=== PATIENT | male | born 1955 | race Caucasian/White ===

== ENCOUNTER 2020-07-06 00:01 | Outpatient (REF) | payer MEDICARE, MEDICAID, SELFPAY ==
[2020-07-07 12:50] LABS: ALT 47 U/L (16-63); AST 24 U/L (15-37); Albumin 3.6 g/dL (3.4-5.0); Alkaline Phosphatase 71 U/L (46-116); Anion Gap 11.8 mmol/L (3-11); BUN 14 mg/dL (7-18); Bilirubin, Total 0.3 mg/dL (0.2-1.0); CO2 26.2 mmol/L (21.0-32.0); CREATININE 1.13 mg/dL (0.70-1.30); Calcium 8.9 mg/dL (8.5-10.1); Chloride 102 mmol/L (98-107); Glucose 86 mg/dL (74-106); Potassium 3.9 mmol/L (3.5-5.1); Sodium 140 mmol/L (136-145); Total Protein 7.1 g/dL (6.4-8.2)
[2020-07-07 12:53] LABS: Calculated LDL 129 mg/dL (<100); Cholesterol 190 mg/dL (<200); HDL Cholesterol 32 mg/dL (40-60); Triglyceride 145 mg/dL (<150)
[2020-07-07 13:05] LABS: HCT 48.5 % (40.0-50.0); HGB 16.3 g/dL (13.5-17.5); MCHC 33.6 % (32.0-36.0); MCV 92.4 fL (80-95); MPV 10.6 fL (8.0-11.0); Neutrophils % 57.1; Platelet Count 215 10^3/uL (130-400); RBC 5.25 10^6/uL (4.36-5.78); RDW 11.1 % (11.8-14.1); WBC 8.16 10^3/uL (4.4-10.8)
[2020-07-07 13:06] LABS: Abs Immature Grans 0.03 10^3/uL (0.0-0.06); Absolute Basophil Count 0.06 10^3/uL (0.0-0.2); Absolute Eosinophil Count 0.19 10^3/uL (0.0-0.7); Absolute Lymphocyte Count 2.15 10^3/uL (1.2-3.4); Absolute Monocyte Count 1.08 10^3/uL (0.1-0.8); Absolute Neutrophil Count 4.65 10^3/uL (1.2-6.7); Basophils % 0.7; Eosinophils % 2.3; Immature Grans % 0.4; Lymphocytes % 26.3; Monocytes % 13.2; Nucleated RBC 0 %
== END 2020-07-06 00:21 ==
LOC: LBN 00:01
PROVIDERS: PCP Family Medicine; Visit Provider Physician Assistant
DX: I10 Essential (primary) hypertension (principal)
CPT/HCPCS: 80053; 80061; 85025

== ENCOUNTER 2020-11-24 13:30 | Outpatient (REF) | payer OTHER, MEDICAID, SELFPAY ==
[2020-11-24 22:07] LABS: Calculated LDL 164 mg/dL (<100); Cholesterol 233 mg/dL (<200); HDL Cholesterol 47 mg/dL (40-60); Triglyceride 111 mg/dL (<150)
[2020-11-25 18:09] LABS: PSA, Screening 0.3 ng/mL (0.0-4.5)
== END 2020-11-24 13:31 | disposition home or self-care (01) ==
LOC: LBN 13:30
PROVIDERS: PCP Family Medicine; Visit Provider Emergency Medicine
DX: I10 Essential (primary) hypertension (principal); E78.6 Lipoprotein deficiency; Z12.5 Encounter for screening for malignant neoplasm of prostate
CPT/HCPCS: 80061; 84153

== ENCOUNTER 2021-01-12 10:59 | Outpatient (REF) | payer OTHER, MEDICAID, SELFPAY ==
[2021-01-12 14:45] LABS: Anion Gap 10.4 mmol/L (3-11); BUN 16 mg/dL (7-18); CO2 26.6 mmol/L (21.0-32.0); Calcium 9.2 mg/dL (8.5-10.1); Chloride 102 mmol/L (98-107); Glucose 110 mg/dL (74-106); Potassium 4.1 mmol/L (3.5-5.1); Sodium 139 mmol/L (136-145)
== END 2021-01-12 11:00 | disposition home or self-care (01) ==
LOC: LBN 10:59
PROVIDERS: PCP Emergency Medicine; Visit Provider Emergency Medicine
DX: I10 Essential (primary) hypertension (principal)
CPT/HCPCS: 80048

== ENCOUNTER → 2021-07-22 11:03 | Outpatient (BNVA) | payer MEDICARE, MEDICAID, SELFPAY | PROVIDERS: PCP Emergency Medicine; Referring Provider Emergency Medicine; Visit Provider Physical Therapy Assistant | DX: Z12.11 Encounter for screening for malignant neoplasm of colon (principal); I10 Essential (primary) hypertension ==

== ENCOUNTER 2021-07-28 01:16 | Outpatient (CLI) | payer MEDICARE, SELFPAY ==
[2021-07-28 11:22] LABS: Source Nasal/Nares
[2021-07-28 14:02] LABS: COVID-19 PCR Negative (Negative)
== END 2021-07-28 01:17 | disposition home or self-care (01) ==
LOC: LBO 01:17
PROVIDERS: PCP Emergency Medicine; Visit Provider Surgery
DX: Z20.822 Contact with and (suspected) exposure to COVID-19 (principal)
CPT/HCPCS: 87635

== ENCOUNTER 2021-07-30 11:02 | Day surgery (SDC) | payer MEDICARE, SELFPAY ==
--- NOTE | 2021-07-29 22:43 | COLE_ITS ---
Colonoscopy Report Date of procedure: 07/30/21 Pre-op diagnosis general: CRC screen Surgeon: Deepti Rodriguez Anesthesia Type: General:No Airway Pathology: other Complications: None Disposition: same day Prep: Miralax/Dulcolax Retraction Time: 9 Procedure Description: After informed consent was obtained the patient was taken to the procedure room and placed in a left decubitous position. Monitors were applied and a time out was done. The patients name, date of , procedure, allergies to medications and metal in their body was reviewed. The patient was then sedated. Once sedated and comfortable a rectal exam was done. External exam was normal. Internal exam revealed a normal sphincter tone and no palpable mas ses. The scope was then introduced and retrofelexed. No internal hemorrhoids were identified. The scope was then advanced to the cecum w/out difficulty. The TI and appendiceal orifice were identified. The prep was good. The scope was then slowly retracted over 9 minutes back into the rectum. Patient had a small 5 mm polyp at 90 cm. This is removed with cold forcep. All specimen is retrieved and no bleeding is noted. He is moderate diverticula confined to the sigmoid colon. There is no signs of active bleeding or.. The scope was removed and the patient was woken up and taken back to Same day surgery in stable condition. The patient tolerated the procedure well and there were no immediate complications. Follow up: The patient should follow up in 5-7 years unless they develop changes in bowel habits or other new gastrointestinal complaints.
--- NOTE | 2021-07-29 22:44 | PDOC.DSDIS_ITS ---
Discharge Plan Disposition Patient Disposition: HOME Condition: Good Discharge Details Reason For Visit: colon scope Attending Provider: Deepti Rodriguez Primary Care Provider: John Willis Home Meds and New Rx's Prescriptions: Continued lisinopril 2.5 mg tablet 2.5 mg PO DAILY Qty: 90 RF: 3 amlodipine 5 mg tablet 5 mg PO DAILY Qty: 90 RF: 11 aspirin 81 mg tablet,chewable 81 mg PO DAILY RF: 0 cholecalciferol (vitamin D3) 10 mcg (400 unit) capsule 10 mcg PO DAILY RF: 0 naproxen sodium [Aleve] 220 mg tablet 220 mg PO BID PRNRF: 0 hydrochlorothiazide 25 mg tablet 25 mg PO QAM Qty: 90 RF: 3 Discontinued bisacodyl [Dulcolax (bisacodyl)] 5 mg tablet,delayed release (DR/EC) 5 mg PO ONCE Qty: 4 RF: 0 polyethylene glycol 3350 17 gram/dose powder 17 g PO ONCE Qty: 238 RF: 0 Discharge Instructions Additional Instructions: DSU Colonoscopy Post- Op Instructions Instructions for Everyone who is given Anesthesia: For your safety, please do the following for the next twenty-four (24) hours: *Do Not operate a motor vehicle (car, truck, motorcycle, etc.) *Do Not drink alcoholic beverages or use any recreational drugs for the first 24 hours or while taking pain medications. The medications in your body may have a reaction that can be dangerous. *Do Not make any important decisions or sign any important papers. Findings:diverticula x1 small polyp Follow up: My office will send a letter in 2 to 3 weeks time detailing as to what type of polyp it was and when we want you to repeat your colonoscopy. 1. No lifting over 20 pounds or strenuous activity for the first 24 hours after your procedure. After 24 hours there are no restrictions on your activity but you may feel fatigued for a few days. 2. After you arrive home you may have a light meal and return to your normal diet as you can tolerate it without feeling sick to your stomach. 3. You may have a bloated, gaseous feeling in your belly (abdomen) after a colonoscopy. Passing gas and belching will help. Walking or lying down on your left side with your knees flexed may relieve the discomfort. Call the office at [phone] (Office) or [phone] (Hospital) right away if you notice any of the following: a.Vomiting of blood or ?coffee ground stools?. b.Rectal bleeding 1Tbsp, blood clots or continuous bleeding. c.Severe belly (abdominal) pain. d.A hard distended belly (abdomen) and an inability to pass gas. 4. Please don?t expect to have a normal BM (bowel movement) for 2-3 days after your procedure. 5. If there are questions regarding the findings of your procedure, please contact your doctor 6. If you are unable to contact your doctor with a problem, contact the hospital at [phone]. 7. Continue all your regular medications unless directed otherwise. I understand the above instructions and have no questions. Signature of Patient or Adult Escort Name of Responsible Adult Escort Signature of Nurse Date/Time Activity:: see above Diet:: see above Discharge Orders Discharge Orders: Discharge Order (Routine); Ordered 07/29/21 Ordered By: Deepti Rodriguez DS: Diagnosis Discharge Diagnosis (1) Colon cancer screening: Status: Acute
--- NOTE | 2021-07-30 11:20 | W.ANESPRE ---
General Info Date of Service Date Performed: 07/30/21 Height: 6 ft Weight: 97.976 kg Body Mass Index (BMI): 29.2 Surgical Procedure: Operation Date: 07/30/21 11:35 Proposed Procedures Side Surgeon naz Rodriguez, DO Meds Allergies and Home Medications Allergies Allergy/AdvReac Type Severity Reaction Status Date / Time No Known Allergies Allergy Verified 07/30/21 11:19 Home Medication Medication Instructions Recorded aspirin 81 mg chewable tablet 81 mg PO DAILY 08/03/20 cholecalciferol (vitamin D3) 10 10 mcg PO DAILY 08/03/20 mcg (400 unit) capsule naproxen sodium 220 mg tablet 220 mg PO BID PRN 08/03/20 hydrochlorothiazide 25 mg tablet 25 mg PO QAM #90 tab 11/24/20 amlodipine 5 mg tablet 5 mg PO DAILY #90 tab 01/12/21 lisinopril 2.5 mg tablet 2.5 mg PO DAILY #90 tab 01/12/21 Current Visit Medications: Current Medications Generic Name Dose Route Start Last Admin Trade Name Freq PRN Reason Stop Dose Admin Hyoscyamine Sulfate 0.125 mg 07/29/21 22:41 Hyoscyamine 0.125 Mg Sl/Oral/Chew SL DIRECTED PRN Ringer's Solution 1,000 mls @ 80 mls/hr 07/30/21 06:00 IV 08/28/21 23:59 [facility] IV Miscellaneous Supplies 1 each 07/30/21 06:00 Iv Access IV 08/28/21 23:59 DIRECTED TIFFANY Ondansetron HCl 4 mg 07/29/21 22:41 Ondansetron 4 Mg/2 Ml Vial IVP Q4H PRN PRN Nausea / Vomiting Sodium Chloride 0 ml 07/30/21 06:00 Normal Saline Flush 10 Ml Syr IV 08/28/21 23:59 PRN PRN Sodium Chloride 0 ml 07/30/21 06:00 Normal Saline 10 Ml Vial IJ 08/28/21 23:59 DIRECTED PRN Sterile Water 0 ml 07/30/21 06:00 Water,Injection,Sterile 10 Ml Vial IJ 08/28/21 23:59 DIRECTED PRN PFSH Active Problems Active Problems: Problem Status Onset Code Colon cancer screening Z12.11 Generalized osteoarthritis of multiple sites ~01/29/18 M15.9 Generalized osteoarthrosis of multiple sites ~12/18/16 M15.9 Low HDL (under 40) E78.6 Hypertension I10 Medical History Medical History Osteoarthritis of spine (~09/13/12) Surgical History Surgical History S/P cholecystectomy (~10/2010) Tobacco Smoking/Tobacco Use Status: Former Tobacco Use Tobacco: How many years used: 8 Smokeless tobacco user: chewing tobacco Passive smoking exposure: No Quit Status: quit date established Second hand exposure: No Alcohol Alcohol Intake: current Alcohol intake frequency: a few times a week Alcohol type: beer Substance Use Substance use: Never Substance use type: does not use Vital Signs and Lab Results Vital Signs Most Recent Vital Signs in EMR: Temp Pulse Resp BP Pulse Ox 36.6 C 76 16 146/95 H 96 07/30/21 11:23 07/30/21 11:23 07/30/21 11:23 07/30/21 11:23 07/30/21 11:23 Lab Results Blood Type / Crossmatch: No Data to Display Complete Blood Count: No Data to Display Complete Metabolic Panel: No Data to Display Liver Function Panel: No Data to Display Coagulation Panel: No Data to Display Cardiac Panel: No Data to Display Arterial Blood Gas: No Data to Display Venous Blood Gas: No Data to Display Pancreas Panel: No Data to Display Thyroid Panel: No Data to Display Infectious Disease: Coronavirus (COVID-19)(PCR) Negative (Negative) 07/28/21 09:08 07/28/21 Coronavirus 2019 Source Nasal/Nares 07/28/21 09:08 07/28/21 Blood Cultures: No Data to Display Toxicology Panel: No Data to Display Anesthesia Assessment and Plan Anesthesia History Personal History: No History of Anesthesia Complications Family History: No Family History of Anesthesia Complications Exercise Tolerance Exercise Tolerance: Metabolic Equivalents>4 Pertinent Negatives Pertinent Negatives: No Symptoms of GERD Cardiac & Pulmonary Exam Cardiac Exam: Normal S1/S2 Heart Sounds Pulmonary Exam: Clear Bilateral Breath Sounds Implantable Cardiac Device Does patient have a Pacemaker or an ICD?: No Airway Exam Known Difficult Airway: No Mallampati Class: 2 Mouth Opening: Normal (> 3cm) Thyromental Distance: Greater than 3 cm Neck Range of Motion: Full ROM Neck Circumference: Normal Teeth Condition: Normal Dentition ASA Classification ASA Score: ASA 2 Emergency Case?: No NPO Status NPO Status: NPO Clears >2 hours, Solids >8 hours Anesthesia Plan Resuscitation Status: Full Code Anesthesia Technique: General Anesthesia Airway Planned: Natural Airway Monitors Used: Standard Monitors
[2021-07-30 11:23] VITALS: BP 146/95; PULSE 76; RESP 16; TEMP 36.6; O2SAT 96
[2021-07-30] MEDS: Lactated Ringers 1,000 ML 80 ML IV (11:47)
[2021-07-30 11:57] VITALS: BMI 29.2
--- NOTE | 2021-07-30 12:15 | BOWEL_PTH ---
PATIENT: John Pretty LOC: [facility] U#:[id number] AGE/SX: 66/M ROOM: RE07/30/[address]: Deepti Rodriguez : 1955 BED: DIS: 07/30/2021 SPEC #: [id number] RECD: 07/30/21 13:05 STATUS: ANAHI REQ #: [id number] JUAN M: 07/30/21 12:[address]: Deepti Rodriguez DEPT: Surgical Specimen RECD BY: Jia Johnson ENTERED: 07/30/21 13:06 SP TYPE: Bowel OTHR DR: John Willis DO Tissues: 1 - BIOPSY BOWEL Procedures: GROSS AND MICRO LEVEL 4 Comments: [id number]
[2021-07-30 12:47] VITALS: BP 118/96; PULSE 66; RESP 16; TEMP 36; O2SAT 92
--- NOTE | 2021-07-30 12:59 | W.ANESPOSTOP ---
Postoperative Evaluation Date, Time and Location Date Performed: 07/30/21 Time Performed: 12:59 Patient Location: Day Surgery Unit Vital Signs Most Recent Imported Vital Signs: Most Recent Vital Signs Temp Pulse Resp BP Pulse Ox 36 C L 66 16 118/96 H 92 07/30/21 12:47 07/30/21 12:47 07/30/21 12:47 07/30/21 12:47 07/30/21 12:47 Pain Score Most Recent Pain Score: Most Recent Pain Score Pain Level 0 07/30/21 12:47 Assessment Mental Status: Awake (Alert & Oriented to Patient Baseline) Airway and Respiratory Function: Patent airway with normal (patient baseline) respiratory exam Cardiovascular Function: Hemodynamically Stable Hydration Status: Adequately Hydrated Nausea & Vomiting: No Nausea or Vomiting Pain: Pt. Denies Any Pain Peripheral Nerve Block: Patient did not receive a nerve block
[2021-07-30 13:16] VITALS: BP 119/85; PULSE 60; RESP 16; TEMP 36.4; O2SAT 94
== END 2021-07-30 13:58 | disposition home or self-care (01) ==
LOC: SUR 11:03
PROVIDERS: PCP Emergency Medicine; Visit Provider Surgery
PROC: 0DJD8ZZ Inspection of Lower Intestinal Tract, Via Natural or Artificial Opening Endoscopic (ICD-10-PCS; CPT 45378; principal; 2021-07-30 11:30)
DX: Z12.11 Encounter for screening for malignant neoplasm of colon (principal); D12.3 Benign neoplasm of transverse colon; K57.30 Diverticulosis of large intestine without perforation or abscess without bleeding
CPT/HCPCS: 45380; 88305; J2704

== ENCOUNTER → 2021-08-09 00:39 | Outpatient (CLI) | payer MEDICARE, SELFPAY ==
--- NOTE | 2021-08-09 08:00 | DI.RAD_ITS ---
Exam(s) XR CHEST 2V PA LATERAL EXAM: XR CHEST 2V PA LATERAL CLINICAL HISTORY: chronic cough,R05.3. TECHNIQUE: 2D digital imaging was performed. COMPARISON: No exams were available for comparison FINDINGS: Heart size is normal. The mediastinum is not widened. Lungs are clear. No infiltrates nor pleural effusions. However, on the right side there is a paracentral density seen in the frontal view measuring 1.9 x 1 point 2 cm, possibly significant. There is possibly that this is just the most anterior aspect of th e costochondral junction of the 1st rib but density is significant more so than is evident on the opp osite side. IMPRESSION: As above. Recommend comparison to prior outside x-rays or CT scan. DATA REPOSITORY: RADIATION DOSE DELIVERED:
== END ==
PROVIDERS: PCP Emergency Medicine; Visit Provider Emergency Medicine
DX: E78.5 Hyperlipidemia, unspecified (principal); R05.3 Chronic cough; R91.8 Other nonspecific abnormal finding of lung field
CPT/HCPCS: 71046

== ENCOUNTER 2021-08-09 04:25 | Outpatient (CLI) | payer MEDICARE, SELFPAY ==
[2021-08-09 11:53] LABS: HCT 49.8 % (40.0-50.0); HGB 16.9 g/dL (13.5-17.5); MCH 30.9 pg (27.0-33.0); MCHC 33.9 % (32.0-36.0); MPV 9.3 fL (8.0-11.0); Platelet Count 281 10^3/uL (130-400); RBC 5.47 10^6/uL (4.36-5.78); RDW 11.4 % (11.8-14.1); RDW-SD 38.3 fL; WBC 8.07 10^3/uL (4.4-10.8)
[2021-08-09 12:32] LABS: ALT 36 U/L (16-63); AST 20 U/L (15-37); Albumin 3.9 g/dL (3.4-5.0); Alkaline Phosphatase 68 U/L (46-116); BUN 19 mg/dL (7-18); Bilirubin, Total 0.5 mg/dL (0.2-1.0); CREATININE 1.1 mg/dL (0.70-1.30); Calculated LDL 179 mg/dL (<100); Chloride 100 mmol/L (98-107); Cholesterol 247 mg/dL (<200); Glucose 90 mg/dL (74-106); HDL Cholesterol 43 mg/dL (40-60); Potassium 3.6 mmol/L (3.5-5.1); Sodium 137 mmol/L (136-145); Total Protein 7.6 g/dL (6.4-8.2); Triglyceride 128 mg/dL (<150)
[2021-08-09 12:45] LABS: C-Reactive Protein 0.94 mg/dL (0.0-0.3)
== END 2021-08-09 04:26 | disposition home or self-care (01) ==
LOC: LBO 04:25
PROVIDERS: PCP Emergency Medicine; Visit Provider Emergency Medicine
DX: I10 Essential (primary) hypertension (principal); E78.5 Hyperlipidemia, unspecified; R05.3 Chronic cough
CPT/HCPCS: 36415; 80053; 80061; 85027; 86140

== ENCOUNTER → 2021-08-11 00:33 | Outpatient (CLI) | payer MEDICARE, SELFPAY ==
--- NOTE | 2021-08-11 06:30 | DI.CT_ITS ---
Exam(s) CT CHEST W EXAM: CT CHEST W CLINICAL HISTORY: cough. abnormal chest xray,r05.3,density. TECHNIQUE: Multi planar reconstructions were performed. CONTRAST MATERIAL: Omnipaque 350; 75 cc COMPARISON: CR XR CHEST 2V PA LATERAL from 08/09/2021 CR XR CHEST 2V PA LATERAL from 08/09/2021 FINDINGS: CHEST: LUNGS: There is no evidence of significant mass to correspond to the finding described in the right p aracentral region on the recent chest x-ray of 08/09/2021. There are mild benign-appearing increased markings in the right upper and right lower lobes. Incidentally noted is a small nodule in the poste rior basal segment of the right lower lobe measuring 6 x 5 millimeters. Requires follow-up. There a re no significant focal findings in the opposite-right lung. There are no pleural effusions on eithe r side. No significant focal findings in the trachea and mainstem bronchi. There is no bronchiectas is MEDIASTINUM: There is no hilar nor mediastinal adenopathy. Visualized thyroid unremarkable. CARDIAC: Heart size is normal. There is no pericardial effusion.Caliber of the thoracic aorta is wit hin normal limits. VISUALIZED UPPER ABDOMEN:There are no significant adrenal masses. Hepatic steatosis incidentally not ed. Also small 4 millimeter hypodensity in the lateral aspect of right hepatic lobe which has benign appearance and is probably a small hemangioma or cyst. There is no splenomegaly. OSSEOUS: No significant osseous lesions.. IMPRESSION: 1. No evidence of significant abnormal finding to correspond to what was described on the recent ches t x-ray of 08/09/2021. There is no evidence of pulmonary mass at this level nor mediastinal adenopat hy nor mediastinal mass. 2. In addition to benign-appearing markings in right upper and right lower lobes there is a small 6 x 5 millimeter nodule also noted in the posterior basal segment of the right lower lobe. Recommend fo llow-up CT scan in 6 months. 3. There are no pleural effusions. RADIATION DOSE DELIVERED: 682.49mGy.cm Total DLP DATA REPOSITORY: All CT scans at this facility are submitted to the National Radiology Data Registry (NRDR) Dose Index Registry (DIR) with the [employer] ([employer]). RADIATION OPTIMIZATION: All CT scans at this facility use at least one of these dose optimization te chniques: automated exposure control; mA and/or kV adjustment per patient size (includes targeted exa ms where dose is matched to clinical indication); or iterative reconstruction.
[2021-08-11] MEDS: Omnipaque 350 MG/ML 100 ML BTL IJ (08:42)
[2021-08-11] MEDS: Normal Saline Flush 10 ML SYR IVP (08:43)
== END ==
PROVIDERS: PCP Emergency Medicine; Visit Provider Emergency Medicine
DX: R05.3 Chronic cough (principal); R91.1 Solitary pulmonary nodule
CPT/HCPCS: 71260; J3490

== ENCOUNTER → 2022-02-21 01:41 | Outpatient (CLI) | payer MEDICARE, MEDICAID, SELFPAY ==
--- NOTE | 2022-02-21 07:30 | DI.CT_ITS ---
Exam(s) CT CHEST WO EXAM: CT CHEST WO CLINICAL HISTORY: f/u pulmonary nodule,chest pain on breathing,r91.1,r07.1. TECHNIQUE: Multi planar reconstructions were performed. CONTRAST MATERIAL: None COMPARISON: CR XR CHEST 2V PA LATERAL from 08/09/[address] CHEST W from 08/11/2021 FINDINGS: CHEST: LUNGS: Previously described 5-6 millimeter nodule in the medial aspect of the posterior basal segment right lower lobe is again noted and presently appears to contain some calcium indicating that it mos t probably a benign granuloma. It has not increased in size and there are no new additional right tam ng nodules. There are also no significant nodules in the opposite-left lung. No pleural effusions o n either side. No confluent infiltrates. No significant focal findings in the trachea and mainstem bronchi MEDIASTINUM: There is no obvious hilar nor mediastinal adenopathy. Visualized thyroid unremarkable.No obvious axillary adenopathy CARDIAC: Heart size is normal. There is no pericardial effusion.Caliber of the thoracic aorta is wit hin normal limits. VISUALIZED UPPER ABDOMEN: OSSEOUS: No significant osseous lesions.. IMPRESSION: 1. Benign-appearing 5 millimeter right lower lobe nodule which now contains calcification therein imp lying that it is benign. No new nodules. Pleural effusions. 2. No intrathoracic adenopathy. RADIATION DOSE DELIVERED: 650.65mGy.cm Total DLP DATA REPOSITORY: All CT scans at this facility are submitted to the National Radiology Data Registry (NRDR) Dose Index Registry (DIR) with the [employer] ([employer]). RADIATION OPTIMIZATION: All CT scans at this facility use at least one of these dose optimization te chniques: automated exposure control; mA and/or kV adjustment per patient size (includes targeted exa ms where dose is matched to clinical indication); or iterative reconstruction.
== END ==
PROVIDERS: PCP Family Medicine; Visit Provider Emergency Medicine
DX: J90 Pleural effusion, not elsewhere classified (principal); J98.4 Other disorders of lung; R91.1 Solitary pulmonary nodule; E78.5 Hyperlipidemia, unspecified
CPT/HCPCS: 71250

== ENCOUNTER 2022-03-24 01:57 | Outpatient (CLI) | payer MEDICARE, MEDICAID, SELFPAY ==
[2022-03-24 13:12] LABS: Anion Gap 8.4 mmol/L (3-11); BUN 18 mg/dL (7-18); CO2 29.6 mmol/L (21.0-32.0); Calcium 8.9 mg/dL (8.5-10.1); Calculated LDL 84 mg/dL (<100); Chloride 100 mmol/L (98-107); Cholesterol 149 mg/dL (<200); Glucose 109 mg/dL (74-106); HDL Cholesterol 48 mg/dL (40-60); Sodium 138 mmol/L (136-145); Triglyceride 85 mg/dL (<150)
== END 2022-03-24 01:58 | disposition home or self-care (01) ==
LOC: LOS 01:57
PROVIDERS: PCP Family Medicine; Visit Provider Family Medicine
DX: I10 Essential (primary) hypertension (principal); E78.5 Hyperlipidemia, unspecified
CPT/HCPCS: 36415; 80048; 80061

== ENCOUNTER 2023-12-07 09:23 | Outpatient (CLI) | payer MEDICARE, SELFPAY ==
[2023-12-07 12:27] LABS: Anion Gap 10.9 mmol/L (3-11); BUN 18 mg/dL (7-18); CO2 27.1 mmol/L (21.0-32.0); CREATININE 1.1 mg/dL (0.70-1.30); Calcium 8.8 mg/dL (8.5-10.1); Chloride 104 mmol/L (98-107); Estimated GFR 73.12 (mL/min/1.73m2); Glucose 106 mg/dL (74-106); Potassium 3.6 mmol/L (3.5-5.1); Sodium 142 mmol/L (136-145)
[2023-12-07 12:58] LABS: Hemoglobin A1C 5.8 % (<5.7)
[2023-12-07 20:24] LABS: Calculated LDL 149 mg/dL (<100); Cholesterol 223 mg/dL (<200); HDL Cholesterol 49 mg/dL (40-60); Triglyceride 125 mg/dL (<150)
== END 2023-12-07 09:24 | disposition home or self-care (01) ==
LOC: LOS 09:23
PROVIDERS: PCP Family Medicine; Referring Provider Family Medicine; Visit Provider Family Medicine
DX: E11.51 Type 2 diabetes mellitus with diabetic peripheral angiopathy without gangrene (principal); E78.5 Hyperlipidemia, unspecified; E87.1 Hypo-osmolality and hyponatremia
CPT/HCPCS: 36415; 80048; 80061; 83036

== ENCOUNTER 2024-10-23 04:40 | Outpatient (CLI) | payer MEDICARE, SELFPAY ==
[2024-10-23 10:57] LABS: Hemoglobin A1C 5.7 % (<5.7)
[2024-10-23 11:01] LABS: Anion Gap 7.9 mmol/L (3-11); BUN 19 mg/dL (7-18); CO2 29.1 mmol/L (21.0-32.0); Calcium 9.3 mg/dL (8.5-10.1); Calculated LDL 156 mg/dL (<100); Chloride 102 mmol/L (98-107); Cholesterol 230 mg/dL (<200); Estimated GFR 81.47 (mL/min/1.73m2); Glucose 98 mg/dL (74-106); HDL Cholesterol 44 mg/dL (>or=40); Potassium 3.3 mmol/L (3.5-5.1); Sodium 139 mmol/L (136-145); Triglyceride 151 mg/dL (<150)
== END 2024-10-23 04:41 | disposition home or self-care (01) ==
LOC: LBO 04:41
PROVIDERS: PCP Family Medicine; Visit Provider Family Medicine
DX: E87.1 Hypo-osmolality and hyponatremia (principal); E78.5 Hyperlipidemia, unspecified; R73.9 Hyperglycemia, unspecified
CPT/HCPCS: 36415; 80048; 80061; 83036

== ENCOUNTER 2025-03-03 01:35 | Outpatient (CLI) | payer MEDICARE, SELFPAY ==
[2025-03-03 12:43] LABS: AST 28 U/L (15-37); Calculated LDL 95 mg/dL (<100); Cholesterol 158 mg/dL (<200); HDL Cholesterol 45 mg/dL (>or=40); Potassium 3.4 mmol/L (3.5-5.1); Triglyceride 90 mg/dL (<150)
== END 2025-03-03 01:36 | disposition home or self-care (01) ==
LOC: LOS 01:35
PROVIDERS: PCP Family Medicine; Visit Provider Family Medicine
DX: E78.5 Hyperlipidemia, unspecified (principal); I10 Essential (primary) hypertension
CPT/HCPCS: 36415; 80061; 84132; 84450

== ENCOUNTER 2025-04-05 11:15 | Emergency (ER) | payer MEDICARE, SELFPAY ==
[2025-04-05 11:26] VITALS: BP 145/82; PULSE 68; RESP 16; TEMP 37; O2SAT 93
--- NOTE | 2025-04-05 11:30 | DI.RAD_ITS ---
Exam(s) XR KNEE RT 3V AP,LAT,CHANTEL EXAM: XR KNEE RT 3V AP,LAT,CHANTEL CLINICAL HISTORY: Swelling pain. TECHNIQUE: 2D digital imaging was performed. COMPARISON: No exams were available for comparison FINDINGS: Three views: No evidence of acute fracture but there is a joint effusion noted signifying internal derangement. There is also prepatellar soft tissue swelling. There is no obvious degenerative change in the knee joint. No osseous lesions. There is a tiny 1 mm density projected over the lateral 3rd of the lateral femoral condyle. Is difficult to determine if this is a tiny benign bone island or a tiny foreign body. IMPRESSION: No fracture. Joint effusion is noted signifying internal derangement In addition, there is prepatellar soft tissue swelling. There is no patellar fracture. No obvious abnormality at the level of the quadriceps tendon and patellar ligament. Other findings as above DATA REPOSITORY: RADIATION DOSE DELIVERED:
--- NOTE | 2025-04-05 11:59 | W.ED.GENAD ---
Discharge Plan Disposition Patient Disposition: Home Condition: Stable Discharge Details Clinical Impression: Osteoarthritis of right knee Primary Care Provider: Nathan Moncada ED Provider: Gabriela Parekh Home Meds and New Rx's Prescriptions: Continued aspirin 81 mg tablet,chewable 81 mg PO DAILY naproxen sodium [Aleve] 220 mg tablet 220 mg PO BID PRN hydrochlorothiazide 25 mg tablet See Rx Instructions .ROUTE .COMPLEX Qty: 90 3RF Dose Instruction: TAKE 1 TABLET BY MOUTH EVERY DAY IN THE MORNING Rx Instructions: TAKE 1 TABLET BY MOUTH EVERY DAY IN THE MORNING amlodipine 5 mg tablet 5 mg PO DAILY Qty: 90 3RF triamcinolone acetonide 0.1 % cream 1 applic topical BID PRN (Reason: hand eczema) Qty: 80 1RF atorvastatin 10 mg tablet 10 mg PO DAILY Qty: 90 3RF Discharge Instructions Instructions: Osteoarthritis, Using Cold for Pain Additional Instructions: You have a small amount of fluid in front of your patella on the x-ray. He also have some joint narrowing which could indicate arthritis. No obvious fracture noted. Please follow-up with orthopedics wear the knee brace as needed for comfort. Toe-touch weightbearing. Advance as tolerated. Rest ice compression elevation for the next 3 to 5 days. You may apply a topical diclofenac or Voltaren gel as directed which you can get [id number]. Please take Tylenol or Ibuprofen with food every 4-6 hours as needed for pain and swelling. Thank you for allowing us to care for you today. Follow up with primary care provider in 3-5 days. Return to ED sooner if any worsening or concerns. Referrals: Andrea Bird MD [ [facility] STAFF PHYSICIAN, Orthopaedic Surgical] - 2 weeks Referral Note: ER follow up call for appt Clinical Impression: Osteoarthritis of right knee Nathan Moncada MD [Primary Care Provider, Medicine] - Return if symptoms worsen Discharge Data Discharge Date/Time-TO BE ENTERED AT DEPARTURE: 04/05/25 13:43 HPI General Mode of arrival: ambulatory. Date/Time Provider Initiated Documentation: 04/05/25 11:33. Limitations to Documentation: no limitations. Information obtained by: patient, RN notes reviewed and old records reviewed. HPI Narrative: 69-year-old male with a past medical history of hypertension, high cholesterol presents to the ER with a chief complaint of right knee pain which began yesterday, reports that he did not have any significant injuries was working out in the yard, woke up this morning with increased pain with ambulation, extension and weightbearing. Denies any calf pain, denies any chest pain shortness of breath no erythema or significant swelling noted. Related Data Home Medications ?Medication ?Instructions ?Recorded ?Confirmed aspirin 81 mg chewable tablet 81 mg PO DAILY 08/03/20 04/05/25 naproxen sodium 220 mg tablet 220 mg PO BID PRN 08/03/20 04/05/25 (Aleve) amlodipine 5 mg tablet 5 mg PO DAILY #90 tabs 06/04/24 04/05/25 hydrochlorothiazide 25 mg tablet See Rx Instructions .Route 12/05/24 04/05/25 .COMPLEX #90 tabs triamcinolone acetonide 0.1 % 1 applic topical BID PRN hand 01/24/25 04/05/25 topical cream eczema #80 grams atorvastatin 10 mg tablet 10 mg PO DAILY #90 tabs 02/17/25 04/05/25 Previous Rx's ?Medication ?Instructions ?Recorded amlodipine 5 mg tablet 5 mg PO DAILY #90 tabs 06/04/24 hydrochlorothiazide 25 mg tablet See Rx Instructions .Route 12/05/24 .COMPLEX #90 tabs triamcinolone acetonide 0.1 % 1 applic topical BID PRN hand 01/24/25 topical cream eczema #80 grams atorvastatin 10 mg tablet 10 mg PO DAILY #90 tabs 02/17/25 Allergies Allergy/AdvReac Type Severity Reaction Status Date / Time lisinopril AdvReac Intermediate Cough Verified 04/05/25 11:29 rosuvastatin AdvReac Intermediate Itching Verified 04/05/25 11:29 General Stated Complaint: Orthopedic SHANI: 4 Review of Systems Musculoskeletal Musculoskeletal: Denies deformity, Reports arthralgias, Reports limited range of motion (Due to pain with flexion, does have full extension), Denies numbness and Reports stiffness Neurologic Neurologic: Denies numbness Exam Const General: cooperative, healthy appearing, well developed and well groomed Nutritional Appearance: average body habitus Orientation: alert, awake and oriented x3 Extrem General: normal to inspection Right upper extremity: normal to inspection Left upper extremity: normal to inspection Right lower extremity: normal to inspection, normal capillary refill (Does have some varicose veins noted) and knee Details: normal to inspection, tenderness Location: of the popliteal fossa, of the medial joint line and of the lateral joint line and abnormal ROM Details: pain with passive ROM during Details: in flexion; no swelling, normal knee ligament exam, no deformity and no unusual warmth Left lower extremity: normal to inspection Course Vital Signs Vital signs: Vital Signs Temperature 37.0 C 04/05/25 11:26 Pulse 68 04/05/25 11:26 Respiratory Rate 16 04/05/25 11:26 Blood Pressure 145/82 H 04/05/25 11:26 Pulse Oximetry 93 04/05/25 11:26 Temperature 37.0 C 04/05/25 11:26 Temperature Source Oral 04/05/25 11:26 Pulse 68 04/05/25 11:26 Respiratory Rate 16 04/05/25 11:26 Blood Pressure 145/82 H 04/05/25 11:26 Pulse Oximetry 93 04/05/25 11:26 Oxygen Delivery Method Room Air 04/05/25 11:26 Oxygen Flow Rate 0 04/05/25 11:26 Pain Level 5 04/05/25 11:43 Medical Decision Making X-rays ordered, Differential diagnosis includes but not limited to occult fracture, knee effusion, osteoarthritis, Will give Hinged knee brace and have patient follow up with Orthopedics if worse, give RICE procedures, and instruct on home care, topical Diclofenac, and Tylenol. This text was generated using [employer] Lockation system, please disregard any oddities of phrase or misspellings. Imaging Data Radiologic Study: Imaging: X-Ray Radiologist's impression: Exam: XR Right Knee Exam date and time: 04/05/2025 12:01 PM Age: 69 years old Clinical indication: Other: Swelling and pain TECHNIQUE: Imaging protocol: Radiologic exam of the right knee. Views: 3 views. COMPARISON: No relevant prior studies available. FINDINGS: Bones/joints: Tiny 2 mm density or metallic density projects over region of lateral femoral condyle/epicondylar region. Mild narrowing medial compartment joint space. No new appearing displaced fracture nor dislocation seen. Small amount of suprapatellar fluid. Soft tissues: Slight soft tissue swelling or thickening prepatellar. Vasculature: Arterial calcification. IMPRESSION: 1. Slight prepatellar soft tissue thickening, swelling. Correlate for bursitis, inflammation/infection, hematoma, or other process. 2. Tiny 2 mm density or metallic density projects over region of lateral femoral condyle/epicondylar region. 3. Please see body of report for additional findings. Thank you for allowing us to participate in the care of your patient. Dictated and Authenticated by: Tanvir Bill MD [facility] All Active Problems (Updated 04/05/25 @ 12:36 by Gabriela Parekh NP) Osteoarthritis of right knee (Acute) Hand eczema (Acute) Prediabetes (Acute) Obesity (BMI 30.0-34.9) (Acute) Pulmonary nodule (Acute) Tubular adenoma of colon (Acute ~07/30/21) Hyperlipidemia (Acute) Chronic cough (Acute) Colon cancer screening (Acute) Generalized osteoarthritis of multiple sites (Acute ~01/29/18) Generalized osteoarthrosis of multiple sites (Acute ~12/18/16) Low HDL (under 40) (Acute) Hypertension (Chronic) Medical History Osteoarthritis of spine (~09/13/12) Surgical History History of colonoscopy with polypectomy (~07/30/21) S/P cholecystectomy (~10/2010) Family History Mother , 83 No problems noted. Father , 70 No problems noted. Sister No problems noted. Sister No problems noted. Sister No problems noted. Daughter , 27 Breast cancer Social History Smoking/Tobacco Use Status: Former Tobacco Use tobacco type: smokeless tobacco Quit Date: 08/14/79 Tobacco: How many years used: 8 Smokeless tobacco user: chewing tobacco Quit status: quit date established Second Hand Exposure: No Smoking risk assessment performed?: Yes Alcohol Intake: current Alcohol Intake frequency: a few times a week Alcohol type: beer Drug use: Never Substance use type: does not use Caregiver/Support person: No Household members: spouse Housing: house Communication Needs: None Do you need help understanding health information?: Never Pets and animals: No Sexually active: Yes Do you think of yourself as: straight/heterosexual Current gender identity: male What is your relationship status?: How often do you talk on the phone with friends or family?: three or more times per week How often do you get together with friends or relatives?: once per week How often do you attend temple or samaritan services?: decline to answer Do you belong to any clubs or organized social groups?: no Panel score (0-1 are the most socially isolated patients): 2 What type of physical activity do you participate in: none Sarah/Zoroastrianism: No preference Special sarah needs: No Seatbelt use: always Helmet use: Yes Drive intox or ride w/intox package delivery driver: No Do you feel safe at home: Yes Do you feel safe in your relationship?: Yes Victim of physical abuse: No Victim of emotional abuse: No Victim of sexual abuse: No Would you like helpful sources: No
[2025-04-05 12:44] VITALS: BP 134/80; PULSE 69; RESP 13; O2SAT 96
--- NOTE | 2025-04-05 13:01 | DI.VRAD_ITS ---
PROCEDURE INFORMATION: Exam: XR Right Knee Exam date and time: 04/05/2025 12:01 PM Age: 69 years old Clinical indication: Other: Swelling and pain TECHNIQUE: Imaging protocol: Radiologic exam of the right knee. Views: 3 views. COMPARISON: No relevant prior studies available. FINDINGS: Bones/joints: Tiny 2 mm density or metallic density projects over region of lateral femoral condyle/epicondylar region. Mild narrowing medial compartment joint space. No new appearing displaced fracture nor dislocation seen. Small amount of suprapatellar fluid. Soft tissues: Slight soft tissue swelling or thickening prepatellar. Vasculature: Arterial calcification. IMPRESSION: 1. Slight prepatellar soft tissue thickening, swelling. Correlate for bursitis, inflammation/infection, hematoma, or other process. 2. Tiny 2 mm density or metallic density projects over region of lateral femoral condyle/epicondylar region. 3. Please see body of report for additional findings. Dictated and Authenticated by: Tanvir Bill MD. Orderin Iglesia Ochoa MD
== END 2025-04-05 13:43 | disposition home or self-care (01) ==
PROVIDERS: Emergency Provider Registered Nurse Emergency; PCP Family Medicine
DX: M17.11 Unilateral primary osteoarthritis, right knee (principal); M25.561 Pain in right knee
CPT/HCPCS: 99283 ×2; 73562